=== PATIENT | male | born 1965 | race Native Hawaiian/Other Pacific Islander ===

== ENCOUNTER 2017-09-19 17:38 | Observation (INO) | payer MEDICAID, OTHER ==
[~2017-09-19] VITALS: Ht 177.8 cm; Wt 100.0 kg
[~2017-09-19 17:38] MED LIST: ALBU1AER INH; BENZ1CAP34 PO; CEFD300C PO
[2017-09-19 17:52] VITALS: BP 121/69; PULSE 131; RESP 17; TEMP 98.9; O2SAT 100
[2017-09-19 18:18] VITALS: BP 123/72; PULSE 112; RESP 20; O2SAT 99
[2017-09-19] MEDS ORDERED: PANTOPRAZOLE INJ 80 MG in SODIUM CHLORIDE 0.9% INJ 35 ML IV ONE (18:25)
--- NOTE | 2017-09-19 18:37 | PD ---
HPI Chief Complaint: Dizziness Time Seen by Provider: 18:15 Travel History International Travel<30 days: Yes Contact w/Intl Traveler<30days: Yes Name of Country Traveled to: [place] Traveled to known affect area: No History of Present Illness HPI 52yo M with no PMH presents to the ED with c/o dizziness and black stool for 2 days. Said it feels like the room is spinning but does not notice if it is worst with head movement. Denies any fever, chest pain, sob, n/v, abdominal pain, focal weakness or numbness. Pt has generalized fatigue since yesterday. Pt said his 4 year old jumped on his abdomen 1 week ago and it hurt for a little but not anymore and wasnt sure if this is relevant. Pt has had black stool a few months ago but resolve after 3-4 days so he did not seek medical attention. Pt has not had endoscopy or colonoscopy before. PFSH Social History Tobacco Use: No Allergies-Medications (Allergen,Severity, Reaction): Coded Allergies: guaifenesin (Unverified Allergy, Severe, Rash, 09/19/17) Reported Meds & Prescriptions Reported Meds & Active Scripts Active Review of Systems Except as stated in HPI: all other systems reviewed are Neg Physical Exam Narrative GENERAL: 52yo M in mild distress. SKIN: Focused skin assessment warm/dry. HEAD: Atraumatic. Normocephalic. EYES: Pupils equal and round at 3mm bilaterally. EOMI. No nystagmus. ENT: No nasal bleeding or discharge. Mucous membranes pink and moist. NECK: Trachea midline. No JVD. CARDIOVASCULAR: Tachycardic at 110s-120bpm. No murmur appreciated. RESPIRATORY: No accessory muscle use. Clear to auscultation. Breath sounds equal bilaterally. GASTROINTESTINAL: Abdomen soft, non-tender, nondistended. No rebound tenderness or guarding. RECTAL: No external hemorrhoids. +Black stool. +Hemaprompt. MUSCULOSKELETAL: No obvious deformities. No clubbing. No cyanosis. No edema. NEUROLOGICAL: Awake and alert. No obvious cranial nerve deficits. Motor grossly within normal limits in all extremities. Sensation intact. Normal speech. PSYCHIATRIC: Appropriate mood and affect; insight and judgment normal. Data Data Last Documented VS Vital Signs Date Time Temp Pulse Resp B/P (MAP) Pulse Ox O2 Delivery O2 Flow Rate FiO2 09/19/17 20:00 102 18 113/72 (86) 98 Room Air 09/19/17 17:52 98.9 Orders Orders Electrocardiogram (09/19/17 ) Complete Blood Count With Diff (09/19/17 18:25) Comprehensive Metabolic Panel (09/19/17 18:25) Lipase (09/19/17 18:25) Prothrombin Time / Inr (Pt) (09/19/17 18:25) Act Partial Throm Time (Ptt) (09/19/17 18:25) Type And Screen (09/19/17 18:25) Sodium Chloride 0.9... W/Pantoprazole In (09/19/17 18:25) Sodium Chloride 0.9... W/Pantoprazole In (09/19/17 18:25) Troponin I (09/19/17 18:25) Thyroid Stimulating Hormone (09/19/17 18:25) Ct Abd/Pel W Iv Contrast(Rout) (09/19/17 20:11) Iohexol 350 Inj (Omnipaque 350 Inj) (09/19/17 20:32) Admit Order (Ed Use Only) (09/19/17 20:49) Labs Laboratory Tests Test 09/19/17 18:40 White Blood Count 23.4 TH/MM3 Red Blood Count 3.87 MIL/MM3 Hemoglobin 11.5 GM/DL Hematocrit 34.0 % Mean Corpuscular Volume 87.8 FL Mean Corpuscular Hemoglobin 29.8 PG Mean Corpuscular Hemoglobin Concent 33.9 % Red Cell Distribution Width 12.7 % Platelet Count 333 TH/MM3 Mean Platelet Volume 9.0 FL Neutrophils (%) (Auto) 81.9 % Lymphocytes (%) (Auto) 14.0 % Monocytes (%) (Auto) 3.9 % Eosinophils (%) (Auto) 0.1 % Basophils (%) (Auto) 0.1 % Neutrophils # (Auto) 19.2 TH/MM3 Lymphocytes # (Auto) 3.3 TH/MM3 Monocytes # (Auto) 0.9 TH/MM3 Eosinophils # (Auto) 0.0 TH/MM3 Basophils # (Auto) 0.0 TH/MM3 CBC Comment DIFF FINAL Differential Comment Prothrombin Time 10.3 SEC Prothromb Time International Ratio 1.0 RATIO Activated Partial Thromboplast Time 21.8 SEC Blood Urea Nitrogen 36 MG/DL Creatinine 1.02 MG/DL Random Glucose 174 MG/DL Total Protein 6.9 GM/DL Albumin 3.5 GM/DL Calcium Level 8.6 MG/DL Alkaline Phosphatase 50 U/L Aspartate Amino Transf (AST/SGOT) 14 U/L Alanine Aminotransferase (ALT/SGPT) 17 U/L Total Bilirubin 0.2 MG/DL Sodium Level 142 MEQ/L Potassium Level 4.1 MEQ/L Chloride Level 109 MEQ/L Carbon Dioxide Level 28.2 MEQ/L Anion Gap 5 MEQ/L Estimat Glomerular Filtration Rate 76 ML/MIN Troponin I LESS THAN 0.02 NG/ML Lipase 177 U/L Thyroid Stimulating Hormone 3rd Gen 1.340 uIU/ML MDM Medical Decision Making Medical Screen Exam Complete: Yes Emergency Medical Condition: Yes Interpretation(s) EKG: Sinus tachycardia at 119bpm. LAD. No significant ST segment elevation. Differential Diagnosis Malignancy vs. upper GI bleed vs. gastritis vs. symptomatic anemia vs. vertigo Narrative Course 52yo M with generalized fatigue, black stool and dizziness for 2 days. Pt is tachycardic 110s-120s. Blood pressure is normal at 123/72. Will obtain labs including CBC and type and screen. Pt given protonix bolus and drip. Pt seen at end of my shift and sign out to next team to follow up labs and reevaluate. HemaPrompt Point of Care Internal Pos. & Neg. Controls: Passed Fecal Specimen Occult Blood: Positive Diagnosis Primary Impression: GI bleed Qualified Codes: K92.1 - Melena Scripts Pantoprazole (Protonix) 40 Mg Tab 40 MG PO DAILY for Gastritis for 30 Days, #30 TAB 0 Refills Prov: Jorge Mayo 09/20/17 Liyah Tirado DO Sep 19, 2017 18:37
[2017-09-19] MEDS: PANTOPRAZOLE INJ 80 MG in SODIUM CHLORIDE 0.9% INJ 100 ML IV SCH (18:53)
[2017-09-19 19:05] LABS: AUTOMATED NEUTROPHIL # 19.2 TH/MM3 (1.8-7.7); BASOPHIL % 0.1 % (0.0-2.0); EOSINOPHIL % 0.1 % (0.0-4.0); HEMOGLOBIN 11.5 GM/DL (13.0-17.0); LYMPHOCYTE # 3.3 TH/MM3 (1.0-4.8); MEAN CELL VOLUME 87.8 FL (80.0-100.0); MEAN CORPUSCULAR HEMOGLOBIN 29.8 PG (27.0-34.0); MEAN CORPUSCULAR HGB CONC 33.9 % (32.0-36.0); MONO % 3.9 % (0.0-8.0); MONOCYTE # 0.9 TH/MM3 (0-0.9); NEUT % 81.9 % (16.0-70.0); PLATELET COUNT 333 TH/MM3 (150-450); RED BLOOD COUNT 3.87 MIL/MM3 (4.50-5.90); RED CELL DISTRIBUTION WIDTH 12.7 % (11.6-17.2); WHITE BLOOD COUNT 23.4 TH/MM3 (4.0-11.0)
[2017-09-19 19:17] LABS: PROTHROMBIN TIME - PATIENT 10.3 SEC (9.8-11.6)
--- NOTE | 2017-09-19 19:17 | PD ---
Physical Exam Narrative General: The patient is a well-developed well-nourished male in no acute distress. Head and Neck exam: Head is normocephalic atraumatic. Eyes: EOMI, pupils are equal round and reactive to light. Nose: Midline septum with pink mucous membranes Mouth: Dentition unremarkable. Moist mucus membranes. Posterior oropharynx is not erythematous. No tonsillar hypertrophy. Uvula midline. Airway patent. Neck: No palpable lymphadenopathy. No nuchal rigidity. No thyromegaly. Cardiovascular: Sinus tachycardia in the low 100 without murmurs, gallops, or rubs. No pulse deficit to the extremities on simultaneous auscultation and palpation of his radial art. Lungs: Clear to auscultation bilaterally. No wheezes, rhonchi, or rales. Abdomen: Soft, with minimal discomfort on deep palpation left lower quadrant of the abdomen, no other tenderness on palpation of the other quadrants of the abdomen. No guarding, rebound, or rigidity. Normal bowel sounds are audible. No tenderness on palpation of McBurney's point. Negative Tovar sign. Extremities: No clubbing, cyanosis, or edema. 2+ pulses in all 4 extremities. No calf tenderness on palpation. Back: No costovertebral angle tenderness to palpation. Neurologic Exam: Grossly nonfocal. Skin Exam: No rash noted. Intact skin that is warm and dry. Data Data Last Documented VS Vital Signs Date Time Temp Pulse Resp B/P (MAP) Pulse Ox O2 Delivery O2 Flow Rate FiO2 09/19/17 20:00 102 18 113/72 (86) 98 Room Air 09/19/17 17:52 98.9 Orders Orders Electrocardiogram (09/19/17 ) Complete Blood Count With Diff (09/19/17 18:25) Comprehensive Metabolic Panel (09/19/17 18:25) Lipase (09/19/17 18:25) Prothrombin Time / Inr (Pt) (09/19/17 18:25) Act Partial Throm Time (Ptt) (09/19/17 18:25) Type And Screen (09/19/17 18:25) Sodium Chloride 0.9... W/Pantoprazole In (09/19/17 18:25) Sodium Chloride 0.9... W/Pantoprazole In (09/19/17 18:25) Troponin I (09/19/17 18:25) Thyroid Stimulating Hormone (09/19/17 18:25) Ct Abd/Pel W Iv Contrast(Rout) (09/19/17 20:11) Iohexol 350 Inj (Omnipaque 350 Inj) (09/19/17 20:32) Admit Order (Ed Use Only) (09/19/17 20:49) Labs Laboratory Tests Test 09/19/17 18:40 White Blood Count 23.4 TH/MM3 Red Blood Count 3.87 MIL/MM3 Hemoglobin 11.5 GM/DL Hematocrit 34.0 % Mean Corpuscular Volume 87.8 FL Mean Corpuscular Hemoglobin 29.8 PG Mean Corpuscular Hemoglobin Concent 33.9 % Red Cell Distribution Width 12.7 % Platelet Count 333 TH/MM3 Mean Platelet Volume 9.0 FL Neutrophils (%) (Auto) 81.9 % Lymphocytes (%) (Auto) 14.0 % Monocytes (%) (Auto) 3.9 % Eosinophils (%) (Auto) 0.1 % Basophils (%) (Auto) 0.1 % Neutrophils # (Auto) 19.2 TH/MM3 Lymphocytes # (Auto) 3.3 TH/MM3 Monocytes # (Auto) 0.9 TH/MM3 Eosinophils # (Auto) 0.0 TH/MM3 Basophils # (Auto) 0.0 TH/MM3 CBC Comment DIFF FINAL Differential Comment Prothrombin Time 10.3 SEC Prothromb Time International Ratio 1.0 RATIO Activated Partial Thromboplast Time 21.8 SEC Blood Urea Nitrogen 36 MG/DL Creatinine 1.02 MG/DL Random Glucose 174 MG/DL Total Protein 6.9 GM/DL Albumin 3.5 GM/DL Calcium Level 8.6 MG/DL Alkaline Phosphatase 50 U/L Aspartate Amino Transf (AST/SGOT) 14 U/L Alanine Aminotransferase (ALT/SGPT) 17 U/L Total Bilirubin 0.2 MG/DL Sodium Level 142 MEQ/L Potassium Level 4.1 MEQ/L Chloride Level 109 MEQ/L Carbon Dioxide Level 28.2 MEQ/L Anion Gap 5 MEQ/L Estimat Glomerular Filtration Rate 76 ML/MIN Troponin I LESS THAN 0.02 NG/ML Lipase 177 U/L Thyroid Stimulating Hormone 3rd Gen 1.340 uIU/ML MDM Medical Record Reviewed: Yes Supervised Visit with NEMO: No Interpretation(s) Last Impressions Abdomen/Pelvis CT 09/19/172010 Draft Impressions: Service Date/Time: Tuesday, September 19, 2017 20:23 - CONCLUSION: 1. No acute findings within the abdomen or pelvis. Small right renal cysts. Colonic diverticula without evidence for diverticulitis. Angelito Dixon MD Narrative Course During the course of the patient's emergency department visit, the patient's history, examination, and differential diagnosis were reviewed with the patient. The patient was placed on a c java developer with oximetry and frequent blood pressure monitoring. The patient had IV access obtained and blood work sent for analysis. The patient was initially evaluated by Dr. Tirado. Please see her complete history and physical. The patient's case was checked out to me at the conclusion of her shift. The patient was initially provided Protonix 80 mg IV followed by a Protonix drip. The patient's laboratory studies were reviewed and remarkable for a white count of 23.8, hemoglobin 11.5, platelets 333 with a neutrophil 81.9, CMP is remarkable for chloride of 109, BUN 36, GFR 76, glucose 174, AST 14, troponin is less than 0.02, lipase 177, TSH 1.34, PT 10.3, PTT 21.8. Due to the patient's leukocytosis with the GI bleed, CT scan of the abdomen and pelvis was ordered to further evaluate for possible underlying colitis versus diverticulitis, versus diverticulosis. Radiology studies were reviewed and remarkable for a CT scan of the abdomen and pelvis that shows no acute abnormality. Diverticulosis is noted. No evidence of diverticulitis, renal cyst noted The patient's results were discussed with the patient, including the plan of care. I explained that further testing and/ or monitoring is indicated based on the patient's history, examination, and/ or laboratory findings. Therefore, I recommended admission for additional evaluation. The patient expressed understanding and was agreeable with this plan. The patient was admitted to the hospital in stable condition and [facility] Physician Communication Physician Communication The patient's case including history, pertinent physical examination findings, and laboratory studies were discussed with Dr. Mane. It was agreed [facility] Diagnosis Primary Impression: GI bleed Qualified Codes: K92.1 - Melena Admitting Information Admitting Physician Requests: Admit Scripts No Active Prescriptions or Reported Meds Jena Raymundo MD Sep 19, 2017 19:17
[2017-09-19 19:23] LABS: ALBUMIN 3.5 GM/DL (3.4-5.0); ALT (GPT) 17 U/L (12-78); AST (GOT) 14 U/L (15-37); BICARBONATE 28.2 MEQ/L (21.0-32.0); BLOOD UREA NITROGEN 36 MG/DL (7-18); CALCIUM 8.6 MG/DL (8.5-10.1); CHLORIDE 109 MEQ/L (98-107); CREATININE 1.02 MG/DL (0.60-1.30); GLOMERULAR FILTRATION RATE 76 ML/MIN (>89); GLUCOSE,RANDOM 174 MG/DL (74-106); SODIUM (NA) 142 MEQ/L (136-145)
[2017-09-19 19:32] LABS: ALKALINE PHOSPHATASE 50 U/L (45-117); TOTAL BILIRUBIN ADULT 0.2 MG/DL (0.2-1.0); TOTAL PROTEIN 6.9 GM/DL (6.4-8.2); TROPONIN I LESS THAN 0.02 NG/ML (0.02-0.05)
[2017-09-19 20:00] VITALS: BP 113/72; PULSE 102; RESP 18; O2SAT 98
[2017-09-19] MEDS ORDERED: IOHEXOL 350 MG/ML 10 ML VIAL (for RAD DIAG) IVCONTRAST ONE (20:32)
--- NOTE | 2017-09-19 20:51 | RADRPT ---
EXAM DATE/TIME: 09/19/2017 20:23 [facility] COMPARISON: No previous studies available for comparison. INDICATIONS : Mid lower abdominal pain and bloody stools. IV CONTRAST: 96 cc Omnipaque 350 (iohexol) IV ORAL CONTRAST: No oral contrast ingested. RADIATION DOSE: 13.16 CTDIvol (mGy) MEDICAL HISTORY : None SURGICAL HISTORY : None. ENCOUNTER: Initial ACUITY: 1 week PAIN SCALE: 6/10 LOCATION: abdomen TECHNIQUE: Volumetric scanning of the abdomen and pelvis was performed. Using automated exposure control and ad justment of the mA and/or kV according to patient size, radiation dose was kept as low as reasonably achievable to obtain optimal diagnostic quality images. DICOM format image data is available electro nically for review and comparison. FINDINGS: Lung bases clear except for minimal atelectasis. No acute findings in the liver, spleen, adrenals, kidneys or pancreas. Small right renal cysts. No gallstones of very ductal dilatation. No free fluid. No bowel obstruction. No adenopathy. There are colonic diverticula without evidence for diverticulitis. CONCLUSION: 1. No acute findings within the abdomen or pelvis. Small right renal cysts. Colonic diverticula witho ut evidence for diverticulitis. Angelito Dixon MD on September 19, 2017 at 20:47 Board Certified Radiologist. This report was verified electronically.
[2017-09-19] MEDS: SODIUM CHLOR 0.9% 1000 ML INJ 1,000 ML IV SCH (20:53)
--- NOTE | 2017-09-19 20:55 | HHI.HP ---
HPI Service [facility] Primary Care Physician No Primary Care Physician Admission Diagnosis GI Bleed Diagnoses: (1) GI bleed Diagnosis: Principal (2) Dizziness Diagnosis: Principal (3) Leukocytosis Diagnosis: Principal Travel History International Travel<30 Days: Yes Contact w/Intl Traveler <30 Da: Yes Name of Country Traveled to: [facility] Traveled to Known Affected Are: No History of Present Illness This is a 52-year-old male with no reported PMH of present the ER with complaints of dizziness and black/tarry stools x2 days. States dizziness worse after sitting up or with ambulation. Notes black stool intermittently. States had similar symptoms approx 2mo ago however black stool resolved on its own, did not seek medical attention. Admits to taking ASA intermittently, no Pepto. On arrival, BP 121/69, HR 131, O2 sat 100% on RA, Afebrile. Currently BP 113/ 72, HR 102. WBC 23.4. Hgb 11.5. BUN 36, GFR 76. Troponin negative. INR 1.0. CT Abdomen/Pelvis with no acute findings. Hemoccult + on exam, started on Protonix gtt. Review of Systems Except as stated in HPI: all other systems reviewed are Neg ROS: 14 point review of systems otherwise negative. Past Family Social History Past Medical History PMH: None Past Surgical History PAST SURGICAL HISTORY: None Allergies: Coded Allergies: guaifenesin (Unverified Allergy, Severe, Rash, 09/19/17) Family History PAST FAMILY HISTORY: Reviewed, positive for DM. Social History PAST SOCIAL HISTORY: Negative for alcohol, tobacco or drugs. Physical Exam Vital Signs Vital Signs Date Time Temp Pulse Resp B/P (MAP) Pulse Ox O2 Delivery O2 Flow Rate FiO2 09/19/17 20:00 102 18 113/72 (86) 98 Room Air 09/19/17 18:18 112 20 123/72 (89) 99 Room Air 09/19/17 17:52 98.9 131 17 121/69 (86) 100 Physical Exam PE: GENERAL: Very pleasant middle-aged male in no acute distress. at bedside. HEENT: PERRLA, EOMI. No scleral icterus or conjunctival pallor. No lid lag or facial droop. CARDIOVASCULAR: Regular rate and rhythm. No obvious murmurs to auscultation. No chest tenderness to palpation. RESPIRATORY: No obvious rhonchi or wheezing. Clear to auscultation. Breath sounds equal bilaterally. GASTROINTESTINAL: Abdomen soft, non-tender, nondistended. BS normal. MUSCULOSKELETAL: Extremities without clubbing, cyanosis, or edema. No obvious deformities. NEUROLOGICAL: Awake, alert and oriented x4. No focal neurologic deficits. Moving both upper and lower extremities spontaneously. Laboratory Laboratory Tests Test 09/19/17 18:40 White Blood Count 23.4 Red Blood Count 3.87 Hemoglobin 11.5 Hematocrit 34.0 Mean Corpuscular Volume 87.8 Mean Corpuscular Hemoglobin 29.8 Mean Corpuscular Hemoglobin Concent 33.9 Red Cell Distribution Width 12.7 Platelet Count 333 Mean Platelet Volume 9.0 Neutrophils (%) (Auto) 81.9 Lymphocytes (%) (Auto) 14.0 Monocytes (%) (Auto) 3.9 Eosinophils (%) (Auto) 0.1 Basophils (%) (Auto) 0.1 Neutrophils # (Auto) 19.2 Lymphocytes # (Auto) 3.3 Monocytes # (Auto) 0.9 Eosinophils # (Auto) 0.0 Basophils # (Auto) 0.0 CBC Comment DIFF FINAL Differential Comment Prothrombin Time 10.3 Prothromb Time International Ratio 1.0 Activated Partial Thromboplast Time 21.8 Blood Urea Nitrogen 36 Creatinine 1.02 Random Glucose 174 Total Protein 6.9 Albumin 3.5 Calcium Level 8.6 Alkaline Phosphatase 50 Aspartate Amino Transf (AST/SGOT) 14 Alanine Aminotransferase (ALT/SGPT) 17 Total Bilirubin 0.2 Sodium Level 142 Potassium Level 4.1 Chloride Level 109 Carbon Dioxide Level 28.2 Anion Gap 5 Estimat Glomerular Filtration Rate 76 Troponin I LESS THAN 0.02 Lipase 177 Thyroid Stimulating Hormone 3rd Gen 1.340 Result Diagram: 09/19/170 09/19/171839 Caprini VTE Risk Assessment Caprini VTE Risk Assessment: No/Low Risk (score <= 1) VTE Pharm Contraindication: Active bleeding Caprini Risk Assessment Model Point Value = 1 Point Value = 2 Point Value = 3 Point Value = 5 Age 41-60 Minor surgery BMI > 25 kg/m2 Swollen legs Varicose veins or History of unexplained or recurrent spontaneous Oral contraceptives or hormone replacement Sepsis (< 1 month) Serious lung disease, including pneumonia (< 1 month) Abnormal pulmonary function Acute myocardial infarction Congestive heart failure (< 1 month) History of inflammatory bowel disease Medical patient at bed rest Age 61-74 Arthroscopic surgery Major open surgery (> 45 min) Laparoscopic surgery (> 45 min) Malignancy Confined to bed (> 72 hours) Immobilizing plaster cast Central venous access Age >= 75 History of VTE Family history of VTE Factor V Leiden Prothrombin [id number] Lupus anticoagulant Anticardiolipin antibodies Elevated serum homocysteine Heparin-induced thrombocytopenia Other congenital or acquired thrombophilia Stroke (< 1 month) Elective arthroplasty Hip, pelvis, or leg fracture Acute spinal cord injury (< 1 month) Prophylaxis Regimen Total Risk Factor Score Risk Level Prophylaxis Regimen 0-1 Low Early ambulation 2 Moderate Order ONE of the following: *Sequential Compression Device (SCD) *Heparin 5000 units SQ BID 3-4 Higher Order ONE of the following medications: *Heparin 5000 units SQ TID *Enoxaparin/Lovenox 40 mg SQ daily (WT < 150 kg, CrCl > 30 mL/min) *Enoxaparin/Lovenox 30 mg SQ daily (WT < 150 kg, CrCl > 10-29 mL/min) *Enoxaparin/Lovenox 30 mg SQ BID (WT < 150 kg, CrCl > 30 mL/min) AND/OR *Sequential Compression Device (SCD) 5 or more Highest Order ONE of the following medications: *Heparin 5000 units SQ TID (Preferred with Epidurals) *Enoxaparin/Lovenox 40 mg SQ daily (WT < 150 kg, CrCl > 30 mL/min) *Enoxaparin/Lovenox 30 mg SQ daily (WT < 150 kg, CrCl > 10-29 mL/min) *Enoxaparin/Lovenox 30 mg SQ BID (WT < 150 kg, CrCl > 30 mL/min) AND *Sequential Compression Device (SCD) Assessment and Plan Problem List: (1) GI bleed ICD Code: K92.2 - Gastrointestinal hemorrhage, unspecified Status: Acute (2) Dizziness ICD Code: R42 - Dizziness and giddiness (3) Leukocytosis ICD Code: D72.829 - Elevated white blood cell count, unspecified Assessment and Plan A/P: 1. GI Bleed: black/tarry stool x2 days, similar episode 1mo ago resolved spontaneously, +Hemoccult. Hgb stable at 11.5. Currently on Protonix gtt, will continue. Consult GI for further evaluation, likely EGD. Check repeat Hgb /Hct in am for trend, transfuse as needed for Hgb <7 2. Leukocytosis: WBC 23.4 w/ elevated neutrophil count. Check CXR and U/a to eval for underlying infection. CT Abd/Pelvis w/ no acute findings, images reviewed by me. 3. Dizziness: Likely related to hypovolemia from GI bleed/dehydration, BUN 36 , GFR 76. IVF for hydration, repeat labs in am. 4. DVT Prophylaxis: Pharmacologic contraindication in light of acute bleed. 5. Social work for d/c planning as needed. 6. Case discussed w/ ER physician at length, labs/records/imaging reviewed by me. Problem Qualifiers (1) GI bleed: Qualified Codes: K92.1 - Kavitha Dahl MD Sep 19, 2017 20:55
[2017-09-19] MEDS ORDERED: MAGNESIUM HYDROXIDE SUSP 30 ML CUP PO PRN (21:00)
[2017-09-19] MEDS ORDERED: MORPHINE SULFATE 2 MG/ML INJ IV PUSH PRN (21:00)
[2017-09-19] MEDS ORDERED: LACTULOSE SYRUP 20 GM/30 ML CUP PO PRN (21:00)
[2017-09-19] MEDS ORDERED: ACETAMINOPHEN/HYDROcodone 325 MG/5 MG TAB PO PRN (21:00)
[2017-09-19] MEDS: SODIUM CHLORIDE 0.9% FLUSH 10 ML FLUSH IV FLUSH SCH (21:00)
[2017-09-19] MEDS ORDERED: SENNOSIDES 8.6 MG TAB PO PRN (21:00)
[2017-09-19] MEDS ORDERED: ONDANSETRON HCL 4 MG/2 ML VIAL IVP PRN (21:00)
[2017-09-19] MEDS ORDERED: SODIUM CHLORIDE 0.9% FLUSH 10 ML FLUSH IV FLUSH PRN (21:00)
[2017-09-19] MEDS ORDERED: ACETAMINOPHEN 325 MG TAB PO PRN (21:00)
[2017-09-19] MEDS ORDERED: BISACODYL 10 MG SUPP RECTAL PRN (21:00)
[2017-09-19] MEDS: DOCUSATE SODIUM 50 MG/SENNA 8.6 MG TAB PO SCH (21:00)
[2017-09-19 22:14] VITALS: BP 117/74; PULSE 77; RESP 18; TEMP 98.3; O2SAT 99
--- NOTE | 2017-09-19 22:38 | HHI.PR ---
Subjective Remarks NOT SEEN Objective Vitals Vital Signs Date Time Temp Pulse Resp B/P (MAP) Pulse Ox O2 Delivery O2 Flow Rate FiO2 09/19/17 22:14 09/19/17 22:14 09/19/17 20:00 102 18 113/72 (86) 98 Room Air 09/19/17 18:18 112 20 123/72 (89) 99 Room Air 09/19/17 17:52 98.9 131 17 121/69 (86) 100 I/O 09/18/17 09/18/17 09/18/17 09/19/17 09/19/17 09/19/17 07:00 15:00 23:00 07:00 15:00 23:00 Intake Total 35 ml Balance 35 ml Intake IV Total 35 ml Result Diagram: 09/19/170 09/19/171839 Imaging Last Impressions Abdomen/Pelvis CT 09/19/172010 Draft Impressions: Service Date/Time: Tuesday, September 19, 2017 20:23 - CONCLUSION: 1. No acute findings within the abdomen or pelvis. Small right renal cysts. Colonic diverticula without evidence for diverticulitis. Angelito Dixon MD Objective Remarks GENERAL: Very pleasant middle-aged male in no acute distress. at bedside. HEENT: PERRLA, EOMI. No scleral icterus or conjunctival pallor. No lid lag or facial droop. CARDIOVASCULAR: Regular rate and rhythm. No obvious murmurs to auscultation. No chest tenderness to palpation. RESPIRATORY: No obvious rhonchi or wheezing. Clear to auscultation. Breath sounds equal bilaterally. GASTROINTESTINAL: Abdomen soft, non-tender, nondistended. BS normal. MUSCULOSKELETAL: Extremities without clubbing, cyanosis, or edema. No obvious deformities. NEUROLOGICAL: Awake, alert and oriented x4. No focal neurologic deficits. Moving both upper and lower extremities spontaneously. A/P Problem List: (1) GI bleed ICD Code: K92.2 - Gastrointestinal hemorrhage, unspecified Status: Acute (2) Dizziness ICD Code: R42 - Dizziness and giddiness (3) Leukocytosis ICD Code: D72.829 - Elevated white blood cell count, unspecified Assessment and Plan 1. GI Bleed: black/tarry stool x2 days, similar episode 1mo ago resolved spontaneously, +Hemoccult. Hgb stable at 11.5. Currently on Protonix gtt, will continue. Consult GI for further evaluation, likely EGD. Check repeat Hgb /Hct in am for trend, transfuse as needed for Hgb <7 2. Leukocytosis: WBC 23.4 w/ elevated neutrophil count. Check CXR and U/a to eval for underlying infection. CT Abd/Pelvis w/ no acute findings, images reviewed by me. 3. Dizziness: Likely related to hypovolemia from GI bleed/dehydration, BUN 36 , GFR 76. IVF for hydration, repeat labs in am. 4. DVT Prophylaxis: Pharmacologic contraindication in light of acute bleed. Problem Qualifiers (1) GI bleed: Qualified Codes: K92.1 - Melena Eliezer Louie MD Sep 19, 2017 22:38
--- NOTE | 2017-09-19 22:39 | RADRPT ---
EXAM DATE/TIME: 09/19/2017 22:05 [facility] COMPARISON: No previous studies available for comparison. INDICATIONS : Shortness of breath and dizziness. MEDICAL HISTORY : None. SURGICAL HISTORY : None. ENCOUNTER: Initial ACUITY: 1 day PAIN SCORE: 0/10 LOCATION: Bilateral chest FINDINGS: A single view of the chest demonstrates the lungs to be symmetrically aerated without evidence of mas s, infiltrate or effusion. The cardiomediastinal contours are unremarkable. Osseous structures are intact. CONCLUSION: No acute disease. Angelito Dixon MD on September 19, 2017 at 22:37 Board Certified Radiologist. This report was verified electronically.
[2017-09-20] VITALS: PULSE 82
[2017-09-20 04:00] VITALS: PULSE 88
[2017-09-20 04:02] VITALS: BP 110/66; PULSE 91; RESP 17; TEMP 98.5; O2SAT 95
[2017-09-20 07:05] LABS: AUTOMATED NEUTROPHIL # 9.9 TH/MM3 (1.8-7.7); BASOPHIL % 0.3 % (0.0-2.0); EOSINOPHIL # 0.2 TH/MM3 (0-0.4); EOSINOPHIL % 1.4 % (0.0-4.0); HEMATOCRIT 30.2 % (39.0-51.0); HEMOGLOBIN 10.2 GM/DL (13.0-17.0); LYMPH % 20.7 % (9.0-44.0); LYMPHOCYTE # 2.9 TH/MM3 (1.0-4.8); MEAN CELL VOLUME 88.2 FL (80.0-100.0); MEAN CORPUSCULAR HEMOGLOBIN 29.8 PG (27.0-34.0); MEAN CORPUSCULAR HGB CONC 33.8 % (32.0-36.0); MEAN PLATELET VOLUME 8.7 FL (7.0-11.0); MONO % 6.1 % (0.0-8.0); MONOCYTE # 0.8 TH/MM3 (0-0.9); NEUT % 71.5 % (16.0-70.0); PLATELET COUNT 260 TH/MM3 (150-450); RED BLOOD COUNT 3.43 MIL/MM3 (4.50-5.90); RED CELL DISTRIBUTION WIDTH 12.7 % (11.6-17.2); WHITE BLOOD COUNT 13.8 TH/MM3 (4.0-11.0)
[2017-09-20 07:30] LABS: ALBUMIN 3.4 GM/DL (3.4-5.0); AST (GOT) 18 U/L (15-37); BICARBONATE 26.5 MEQ/L (21.0-32.0); BLOOD UREA NITROGEN 28 MG/DL (7-18); CHLORIDE 110 MEQ/L (98-107); CREATININE 0.98 MG/DL (0.60-1.30); GLOMERULAR FILTRATION RATE 80 ML/MIN (>89); GLUCOSE,RANDOM 100 MG/DL (74-106); SODIUM (NA) 145 MEQ/L (136-145)
[2017-09-20 07:34] VITALS: BP 121/73; PULSE 89; RESP 20; TEMP 98.3; O2SAT 97
[2017-09-20 07:36] LABS: ALKALINE PHOSPHATASE 48 U/L (45-117); ALT (GPT) 19 U/L (12-78); TOTAL BILIRUBIN ADULT 0.5 MG/DL (0.2-1.0); TOTAL PROTEIN 6.3 GM/DL (6.4-8.2)
[2017-09-20] MEDS: SODIUM CHLOR 0.9% 1000 ML INJ 1,000 ML IV SCH (07:42)
[2017-09-20] MEDS: DOCUSATE SODIUM 50 MG/SENNA 8.6 MG TAB PO SCH (08:52)
[2017-09-20] MEDS: SODIUM CHLORIDE 0.9% FLUSH 10 ML FLUSH IV FLUSH SCH (08:52)
[2017-09-20] MEDS: PANTOPRAZOLE INJ 80 MG in SODIUM CHLORIDE 0.9% INJ 100 ML IV SCH (08:52)
--- NOTE | 2017-09-20 09:12 | PD.CONS ---
HPI History of Present Illness This is a 52 year old male who presented to the ER for dizziness, fatigue, black stool. He has had these symptoms for 5-6 days. He admits prior episode black stool 3 months stool that resolved. Admits some upper abd pain that is worse at night, for which he takes ibuprofen. He has been taking iburprofen at night for last few days. Denies red blood in stool. He did vomit yesterday and denies seeing blood or coffee grounds. Never had EGD. Never had colonoscopy. Denies significant heartburn or acid reflux. Not on blood thinners. Takes occasional ASA. (Jenny Washburn) PFSH Past Medical History PMH: None Past Surgical History PAST SURGICAL HISTORY: None (Jenny Washburn) Coded Allergies: guaifenesin (Unverified Allergy, Severe, Rash, 09/19/17) Family History PAST FAMILY HISTORY: Reviewed, positive for DM. Social History PAST SOCIAL HISTORY: Negative for alcohol, tobacco or drugs. (Jenny Washburn) Review of Systems Constitutional: COMPLAINS OF: Fatigue, Dizziness, DENIES: Fever Endocrine: DENIES: Polydipsia Eyes: DENIES: Blurred vision Ears, nose, mouth, throat: DENIES: Hearing loss Respiratory: DENIES: Cough Cardiovascular: DENIES: Chest pain Gastrointestinal: COMPLAINS OF: Abdominal pain, Black stools, Nausea, Vomiting , DENIES: Bloody stools, Hematemesis Genitourinary: DENIES: Hematuria Musculoskeletal: DENIES: Joint Swelling Integumentary: DENIES: Abnormal pigmentation Hematologic/lymphatic: DENIES: Bruising Immunologic/allergic: DENIES: Eczema Neurologic: DENIES: Abnormal gait Psychiatric: DENIES: Confusion (Jenny Washburn) GI Exam Vitals I&O Vital Signs Date Time Temp Pulse Resp B/P (MAP) Pulse Ox O2 Delivery O2 Flow Rate FiO2 09/20/17 07:34 98.3 89 20 121/73 (89) 97 09/20/17 04:02 98.5 91 17 110/66 (81) 95 09/20/17 04:00 88 09/20/17 00:00 82 09/19/17 22:14 98.3 77 18 117/74 (88) 99 09/19/17 22:14 09/19/17 20:00 102 18 113/72 (86) 98 Room Air 09/19/17 18:18 112 20 123/72 (89) 99 Room Air 09/19/17 17:52 98.9 131 17 121/69 (86) 100 I/O 09/19/17 09/19/17 09/19/17 09/20/17 09/20/17 09/20/17 07:00 15:00 23:00 07:00 15:00 23:00 Intake Total 35 ml Balance 35 ml Intake IV Total 35 ml Imaging Last Impressions Abdomen/Pelvis CT 09/19/172010 Signed Impressions: Service Date/Time: Tuesday, September 19, 2017 20:23 - CONCLUSION: 1. No acute findings within the abdomen or pelvis. Small right renal cysts. Colonic diverticula without evidence for diverticulitis. Angelito Dixon MD Chest X-Ray 09/19/17 0000 Signed Impressions: Service Date/Time: Tuesday, September 19, 2017 22:05 - CONCLUSION: No acute disease. Angelito Dixon MD Laboratory Test 09/19/17 18:40 09/20/17 05:55 White Blood Count 23.4 TH/MM3 13.8 TH/MM3 Red Blood Count 3.87 MIL/MM3 3.43 MIL/MM3 Hemoglobin 11.5 GM/DL 10.2 GM/DL Hematocrit 34.0 % 30.2 % Mean Corpuscular Volume 87.8 FL 88.2 FL Mean Corpuscular Hemoglobin 29.8 PG 29.8 PG Mean Corpuscular Hemoglobin Concent 33.9 % 33.8 % Red Cell Distribution Width 12.7 % 12.7 % Platelet Count 333 TH/MM3 260 TH/MM3 Mean Platelet Volume 9.0 FL 8.7 FL Neutrophils (%) (Auto) 81.9 % 71.5 % Lymphocytes (%) (Auto) 14.0 % 20.7 % Monocytes (%) (Auto) 3.9 % 6.1 % Eosinophils (%) (Auto) 0.1 % 1.4 % Basophils (%) (Auto) 0.1 % 0.3 % Neutrophils # (Auto) 19.2 TH/MM3 9.9 TH/MM3 Lymphocytes # (Auto) 3.3 TH/MM3 2.9 TH/MM3 Monocytes # (Auto) 0.9 TH/MM3 0.8 TH/MM3 Eosinophils # (Auto) 0.0 TH/MM3 0.2 TH/MM3 Basophils # (Auto) 0.0 TH/MM3 0.0 TH/MM3 CBC Comment DIFF FINAL DIFF FINAL Differential Comment Prothrombin Time 10.3 SEC Prothromb Time International Ratio 1.0 RATIO Activated Partial Thromboplast Time 21.8 SEC Blood Urea Nitrogen 36 MG/DL 28 MG/DL Creatinine 1.02 MG/DL 0.98 MG/DL Random Glucose 174 MG/DL 100 MG/DL Total Protein 6.9 GM/DL 6.3 GM/DL Albumin 3.5 GM/DL 3.4 GM/DL Calcium Level 8.6 MG/DL 8.0 MG/DL Alkaline Phosphatase 50 U/L 48 U/L Aspartate Amino Transf (AST/SGOT) 14 U/L 18 U/L Alanine Aminotransferase (ALT/SGPT) 17 U/L 19 U/L Total Bilirubin 0.2 MG/DL 0.5 MG/DL Sodium Level 142 MEQ/L 145 MEQ/L Potassium Level 4.1 MEQ/L 4.0 MEQ/L Chloride Level 109 MEQ/L 110 MEQ/L Carbon Dioxide Level 28.2 MEQ/L 26.5 MEQ/L Anion Gap 5 MEQ/L 9 MEQ/L Estimat Glomerular Filtration Rate 76 ML/MIN 80 ML/MIN Troponin I LESS THAN 0.02 NG/ML Lipase 177 U/L Thyroid Stimulating Hormone 3rd Gen 1.340 uIU/ML Physical Examination HEENT: PERRL; normocephalic; atraumatic; no jaundice. CHEST: CTA CARDIAC: Regular rate and rhythm with no murmur gallop or rubs. ABDOMEN: Soft, nondistended, nontender; no hepatosplenomegaly; bowel sounds are present in all four quadrants. EXTREMITIES: No clubbing, cyanosis, or edema. SKIN: Normal; no rash; no jaundice. SECOND MATE: No focal deficits; alert and oriented times three. (Jenny Washburn) Assessment and Plan Plan ASSESSMENT - black tarry stool, symptomatic anemia - normocytic anemia. drop in hgb overnight. heme pos stool. black tarry stool 5 days. never had EGD or colonoscopy. prob UGIB - leukocytosis - unclear etiology, CT abd unremarkable. WBC trend down since yesterday PLAN - continue protonix gtt for now - EGD today - NPO - obtain consent - monitor labs - colonoscopy as outpt - further recs to follow pt seen by myself and Dr Louise and this note is on his behalf (Jenny Washburn) Physician Comments Seen and examined, plan as above, will proceed with EGD today. Thank you for the consult. (Carmina Louise MD) Jenny Washburn Sep 20, 2017 09:12 Carmina Louise MD Sep 20, 2017 11:37
[2017-09-20 11:18] LABS: BACTERIA, URINE OCC /hpf; BILIRUBIN, URINE NEG (NEG); BLOOD, URINE NEG (NEG); GLUCOSE,URINE NEG (NEG); KETONE, URINE NEG (NEG); MUCUS URINE FEW /lpf (OCC); NITRITE,URINE NEG (NEG); SQUAMOUS EPITHELIAL CELL URINE <1 /hpf (0-5); URINE COLOR YELLOW (YELLW/STRAW); URINE LEUKOCYTE ESTERASE LARGE (NEG)
--- NOTE | 2017-09-20 11:50 | GIPROC ---
[facility] [address] [facility]. [facility], [address] EGD PROCEDURE REPORT EXAM DATE: 09/20/2017 PATIENT NAME: Trino Solis MR #: [id number] BIRTHDATE: 1965 ATTENDING: Carmina Louise MD ORDER #: [id number] CORONER FORENSIC TECHNICIAN: Bg Olson and Bernadette Willis STATUS: inpatient INDICATIONS: The patient is a 52 yr old male here for an EGD due to melena PROCEDURE PERFORMED: EGD w/ biopsy MEDICATIONS: None and Per Anesthesia. TOPICAL ANESTHETIC: none CONSENT: The patient understands the risks and benefits of the procedure and understands that these risks include, but are not limited to: sedation, allergic reaction, infection, perforation and/or bleeding. Alternative means of evaluation and treatment include, among others: physical exam, x-rays, and/or surgical intervention. The patient elects to proceed with this endoscopic procedure. medical equipment was checked for proper function. Hand hygiene and appropriate measures for infection prevention was taken. After the risks, benefits and alternatives of the procedure were thoroughly explained, Informed consent was verified, confirmed and timeout was successfully executed by the treatment team. The patient was anesthetized with topical anesthesia and the Pentax [id number] endoscope was introduced through the mouth and advanced to the second portion of the duodenum. Retroflexion was performed and was normal The gastroscope was then slowly withdrawn and removed. ESOPHAGUS: A 2 cm hiatal hernia was noted. STOMACH: There was mild gastritis in the gastric antrum. Multiple biopsies were performed using cold forceps. Sample sent for histology. DUODENUM: A medium sized non-bleeding non-bleeding, deep, round and clean-based ulcer was found in the 1st part of the duodenum. ADVERSE EVENTS: There were no complications. IMPRESSIONS: 1. 2 cm hiatal hernia 2. There was mild gastritis in the gastric antrum; multiple biopsies were performed 3. Medium sized non-bleeding ulcer was found in the 1st part of the duodenum 4. Retroflexion was performed and was normal RECOMMENDATIONS: 1. Await biopsy results. Biopsy results will not be ready for 7-10 days. If you don't hear from us in two weeks, call our office for biopsy results. 2. Continue PPI 3. Avoid NSAIDS PATIENT CONDITION: stable DISPOSITION: Observation REPEAT EXAM: NONE Carmina Louise MD eSigned: Carmina Louise MD 09/20/2017 11:50 AM cc: PATIENT NAME: Trino Solis MR#: [id number]
[2017-09-20] MEDS ORDERED: LIDOCAINE HCL 1% PF 5 ML SYRINGE OTHER ONE (12:00)
[2017-09-20] MEDS ORDERED: PROPOFOL 200 MG/20 ML AMP IV ONE (12:00)
--- NOTE | 2017-09-20 12:39 | HHI.PR ---
Subjective Remarks Follow-up GI bleed. No further bleeding. He is doing okay denies cough and UTI symptoms were discussed with nursing Objective Vitals Vital Signs Date Time Temp Pulse Resp B/P (MAP) Pulse Ox O2 Delivery O2 Flow Rate FiO2 09/20/17 11:58 97.8 86 18 108/67 (81) 96 09/20/17 07:34 98.3 89 20 121/73 (89) 97 09/20/17 04:02 98.5 91 17 110/66 (81) 95 09/20/17 04:00 88 09/20/17 00:00 82 09/19/17 22:14 98.3 77 18 117/74 (88) 99 09/19/17 22:14 09/19/17 20:00 102 18 113/72 (86) 98 Room Air 09/19/17 18:18 112 20 123/72 (89) 99 Room Air 09/19/17 17:52 98.9 131 17 121/69 (86) 100 I/O 09/19/17 09/19/17 09/19/17 09/20/17 09/20/17 09/20/17 07:00 15:00 23:00 07:00 15:00 23:00 Intake Total 35 ml 300 ml Balance 35 ml 300 ml Intake IV Total 35 ml Other 300 ml Result Diagram: 09/20/17 0555 09/20/17 0555 Imaging Last Impressions Abdomen/Pelvis CT 09/19/172010 Signed Impressions: Service Date/Time: Tuesday, September 19, 2017 20:23 - CONCLUSION: 1. No acute findings within the abdomen or pelvis. Small right renal cysts. Colonic diverticula without evidence for diverticulitis. Angelito Dixon MD Chest X-Ray 09/19/17 0000 Signed Impressions: Service Date/Time: Tuesday, September 19, 2017 22:05 - CONCLUSION: No acute disease. Angelito Dixon MD Objective Remarks GENERAL: Very pleasant middle-aged male in no acute distress. HEENT: PERRLA, EOMI. No scleral icterus or conjunctival pallor. No lid lag or facial droop. CARDIOVASCULAR: Regular rate and rhythm. No obvious murmurs to auscultation. No chest tenderness to palpation. RESPIRATORY: No obvious rhonchi or wheezing. Clear to auscultation. Breath sounds equal bilaterally. GASTROINTESTINAL: Abdomen soft, non-tender, nondistended. BS normal. MUSCULOSKELETAL: Extremities without clubbing, cyanosis, or edema. No obvious deformities. NEUROLOGICAL: Awake, alert and oriented x4. No focal neurologic deficits. Moving both upper and lower extremities spontaneously. Procedures EGD A/P Problem List: (1) GI bleed ICD Code: K92.2 - Gastrointestinal hemorrhage, unspecified Status: Acute (2) Dizziness ICD Code: R42 - Dizziness and giddiness (3) Leukocytosis ICD Code: D72.829 - Elevated white blood cell count, unspecified Assessment and Plan 1. GI Bleed: black/tarry stool x2 days, similar episode 1mo ago resolved spontaneously, +Hemoccult. Hgb stable at 11.5. EGD shows gastritis status post biopsy and nonbleeding duodenal ulcer. Stable continue PPI and follow-up biopsy. 2. Leukocytosis: Improved. Unremarkable chest x-ray. Abnormal urinalysis no UTI symptoms. Follow-up urine culture. CT Abd/Pelvis w/ no acute findings, images reviewed by me. 3. Dizziness: Likely related to hypovolemia from GI bleed/dehydration, BUN 36 , GFR 76. IVF for hydration, improved 4. DVT Prophylaxis: Pharmacologic contraindication in light of acute bleed. Discharge Planning Discharge patient to home Condition on discharge: Improved Regular Diet as tolerated. Ad Katina activity Rx written: Protonix. Avoid NSAID Follow-up with primary care physician and GI. Problem Qualifiers (1) GI bleed: Qualified Codes: K92.1 - Melena Eliezer Louie MD Sep 20, 2017 12:39
[2017-09-20] MEDS ORDERED: CHLORHEXIDINE GLUCONATE 2 % 1 PACK (2 CLOTHS) TOPICAL PRN (12:45)
[2017-09-20] MEDS ORDERED: LACTATED RINGER'S 1000 ML IV PRN (12:45)
[2017-09-20] MEDS ORDERED: SODIUM CHLORID 0.9% 500 ML IV PRN (12:45)
[2017-09-20] MEDS ORDERED: METOPROLOL TARTRATE 25 MG TAB PO PRN (12:45)
[2017-09-20] MEDS ORDERED: POVIDONE IODINE 5% (ANTISEPSIS KIT) 4 APPLICATIONS EACH NARE PRN (12:45)
[2017-09-20 13:27] VITALS: BP 113/70; PULSE 90; RESP 20; TEMP 97.6; O2SAT 95
--- NOTE | 2017-09-20 13:38 | EKG ---
Date Performed: 09/19/2017 Time Performed: 18:05:39 PTAGE: 52 years EKG: SINUS TACHYCARDIA WITH SHORT [place] INTERVAL MARKED LEFT AXIS DEVIATION NONSPECIFIC T-WAVE ABNO RMALITY ABNORMAL ECG NO PREVIOUS TRACING DOCTOR: Pedro Sosa Interpretating Date/Time 09/20/2017 13:35:23
[2017-09-20] MEDS ORDERED: PROT40TA PO (14:55)
== END 2017-09-20 16:13 | disposition home or self-care (01) ==
LOC: NEPC 17:38 → NEDA 20:51 → INTOOBSV 20:51 → NEPGCP 21:52
PROVIDERS: ADMIT Internal Medicine; ATTEND Internal Medicine
DX: K29.70 Gastritis, unspecified, without bleeding (principal); K57.90 Diverticulosis of intestine, part unspecified, without perforation or abscess without bleeding; R42 Dizziness and giddiness; E86.0 Dehydration; E86.1 Hypovolemia; D72.829 Elevated white blood cell count, unspecified; D64.9 Anemia, unspecified; R94.31 Abnormal electrocardiogram [ECG] [EKG]; N28.1 Cyst of kidney, acquired; Z87.11 Personal history of peptic ulcer disease
CPT/HCPCS: 71045; 74177; 80053; 81001; 83690; 84443; 84484; 85025; 85610; 85730; 86850; 86900; 86901; 87086; 88305; 88312; 93005; 96361; 96365; 96366; C9113; G0378; J7030; Q9967